=== PATIENT | female | born 1955 | race Caucasian/White ===

== ENCOUNTER 2023-05-29 05:32 | Inpatient (IN) | payer OTHER, MEDICAID ==
[~2023-05-29] VITALS: Ht 165.1 cm; Wt 51.0 kg
[2023-05-29] VITALS (9 sets, daily range): BP systolic 112; BP diastolic 57; PULSE 68–113; RESP 16–30; TEMP 99; O2SAT 89–97
[2023-05-29 07:42] LABS: Hematocrit 34.6 % (36.0-46.0); Hemoglobin 11.5 g/dL (12.2-16.2); Mean Corpuscular Hemoglobin 31.8 pg (28.0-32.0); Mean Corpuscular Hgb Conc. 33.2 g/dL (32.0-36.0); Mean Corpuscular Volume 95.9 fL (80.0-100.0); Red Blood Cells 3.61 10^6/uL (4.0-5.20); Red Cell Distribution Width 14.1 % (11.8-14.3); White Blood Cell 19.2 10^3/uL (4.4-10.8)
[2023-05-29 08:03] LABS: Alanine Aminotransferase 44 U/L (7-40); Alkaline Phosphatase 178 U/L (46-116); Anion Gap 7 (5-15); BUN/Creatinine Ratio 19.4 (10.0-20.0); Blood Urea Nitrogen 13 mg/dL (9-23); Carbon Dioxide 29 mmol/L (20-30); Chloride 102 mmol/L (98-107); Glucose 118 mg/dL (74-106); Potassium 3.3 mmol/L (3.5-5.1); Sodium 138 mmol/L (136-145)
[2023-05-29 08:04] LABS: Albumin 3.7 g/dL (3.2-4.8); Aspartate Aminotransferase 29 U/L (13-40); Bilirubin, Total 0.4 mg/dL (0.2-1.0); Total Protein 5.3 g/dL (5.7-8.2)
[2023-05-29 08:23] LABS: Basophils % (manual) 0 (0.0-2.0); Blast Cells 0; Eosinophils % (manual) 0 (0-7); Lymphocytes % (manual) 0 (10.0-50.0); Monocytes % (manual) 0 (0-12); Reactive Lymphocytes 0
[2023-05-29 09:01] LABS: Band Neutrophils % (manual) 4; Metamyelocytes % 14; Myelocytes % 1; Promyelocytes % 1
[2023-05-29 09:02] LABS: Hypersegmented Neutrophils Present; Platelet Estimate Decreased
[2023-05-29] MEDS: ENOXAPARIN SOD 60 MG/0.6 ML SYRINGE SC ONE (10:00)
[2023-05-29] MEDS: FAMOTIDINE 20 MG TAB PO ONE (10:18)
[2023-05-29] MEDS: POTASSIUM EFFERVESENT TAB 25 MEQ PO ONE (10:19)
[2023-05-29] MEDS: ONDANSETRON ODT 4 MG TAB PO ONE (10:19)
[2023-05-29] MEDS: FUROSEMIDE 20 MG/2 ML VIAL IV ONE (10:20)
[2023-05-29] MEDS: cefTRIAXone 1GM/50ML D5W 50 ML IV ONE (11:06)
[2023-05-29 11:43] LABS: Urine Bacteria NONE SEEN /hpf (None Seen); Urine Blood Negative /uL (Negative); Urine Clarity Clear (Clear); Urine Protein, UAD Negative (Negative); Urine Specific Gravity 1.009 (1.001-1.035); Urine Urobilinogen Normal (Negative); Urine WBC 4 /hpf (0 - 5); Urine pH 5.5 (5.0-8.0)
[2023-05-29 11:47] LABS: Urine Color STRAW (Yellow)
[2023-05-29] MEDS: AZITHROMYCIN 500MG/ 250ML 250 ML IV ONE (12:18)
[2023-05-29] MEDS: ONDANSETRON HCL 4 MG/2 ML VIAL IM ONE (13:18)
[2023-05-29] MEDS: MORPHINE SULFATE INJ 2 MG/ml SYRG IM ONE (13:19)
[2023-05-29 13:40] LABS: INR 1.04 (0.9-1.15); Prothrombin Time 10.9 sec (9.3-11.8)
[2023-05-29] MEDS: IPRATROPIUM BROM 0.5 MG/2.5ML INH SOL NEB SCH (14:00)
[2023-05-29] MEDS: LEVALBUTEROL HCL 1.25 MG/3 ML NEB NEB SCH (14:00)
[2023-05-29] MEDS: IPRATROPIUM BROM 0.5 MG/2.5ML INH SOL NEB ONE (14:03)
[2023-05-29 14:04] LABS: Base Excess 2.5 mmol/L (-2.0-2.0)
[2023-05-29] MEDS: LEVALBUTEROL HCL 1.25 MG/3 ML NEB NEB ONE (14:05)
[2023-05-29] MEDS: FUROSEMIDE 20 MG/2 ML VIAL IV SCH (17:54)
[2023-05-29 18:44] LABS: COVID19 ANTIGEN SOFIA FIA NEGATIVE (NEGATIVE)
[2023-05-29 18:45] LABS: Rapid Influenza B Negative (Negative)
[2023-05-29 18:57] LABS: Rapid Influenza A Positive (Negative)
[2023-05-29] MEDS: HYDROcodone-ACET 5/325MG TAB PO PRN (19:05)
[2023-05-29] MEDS ORDERED: ENOXAPARIN SOD 100 MG/1 ML SYRINGE SC SCH (22:00)
[2023-05-29] MEDS: PANTOPRAZOLE 40 MG/10 ML VIAL INJ IV SCH (22:22)
[2023-05-29] MEDS: ATORVASTATIN 20 MG TAB PO SCH (22:26)
[2023-05-30] VITALS (20 sets, daily range): BP systolic 102–124; BP diastolic 50–66; PULSE 68–117; RESP 14–23; TEMP 97.9–98.9; O2SAT 90–98
[2023-05-30] MEDS: LORazepam 2MG/ML-1ML VIAL IV PRN
[2023-05-30] MEDS ORDERED: HYDR-4902 PO (02:08)
[2023-05-30] MEDS ORDERED: ALPR0.5T7 PO (02:08)
[2023-05-30] MEDS ORDERED: BENA40TA70 PO (02:08)
[2023-05-30] MEDS ORDERED: AMLO1TAB23 PO (02:08)
[2023-05-30] MEDS ORDERED: PAR20T PO (02:08)
[2023-05-30 05:43] LABS: Alanine Aminotransferase 36 U/L (7-40); Albumin 3.8 g/dL (3.2-4.8); Alkaline Phosphatase 169 U/L (46-116); Anion Gap 4 (5-15); Aspartate Aminotransferase 25 U/L (13-40); BUN/Creatinine Ratio 15.4 (10.0-20.0); Bilirubin, Total 0.4 mg/dL (0.2-1.0); Blood Urea Nitrogen 10 mg/dL (9-23); Carbon Dioxide 36 mmol/L (20-30); Chloride 97 mmol/L (98-107); Glucose 128 mg/dL (74-106); Hematocrit 34.7 % (36.0-46.0); Hemoglobin 12.1 g/dL (12.2-16.2); Mean Corpuscular Hgb Conc. 34.9 g/dL (32.0-36.0); Mean Corpuscular Volume 97.6 fL (80.0-100.0); Potassium 3.3 mmol/L (3.5-5.1); Red Blood Cells 3.55 10^6/uL (4.0-5.20); Sodium 137 mmol/L (136-145); Total Protein 5.8 g/dL (5.7-8.2); White Blood Cell 9.2 10^3/uL (4.4-10.8)
[2023-05-30 06:00] LABS: Basophils % (manual) 0 (0.0-2.0); Blast Cells 0; Eosinophils % (manual) 0 (0-7); Promyelocytes % 0; Reactive Lymphocytes 0
[2023-05-30] MEDS: AZITHROMYCIN 500MG/ 250ML 250 ML IV SCH (08:49)
[2023-05-30] MEDS: cefTRIAXone 1GM/50ML D5W 50 ML IV SCH (08:49)
[2023-05-30] MEDS: ONDANSETRON HCL 4 MG/2 ML VIAL IV PRN (08:50)
[2023-05-30] MEDS: ENOXAPARIN SOD 40 MG/0.4 ML SYRINGE SC SCH (08:50)
[2023-05-30 12:58] LABS: Band Neutrophils % (manual) 10; Lymphocytes % (manual) 3 (10.0-50.0); Metamyelocytes % 6; Monocytes % (manual) 3 (0-12); Myelocytes % 1; Platelet Estimate Decreased
[2023-05-30] MEDS ORDERED: AZITHROMYCIN 500MG/ 250ML 250 ML IV ONE (13:30)
[2023-05-30] MEDS: MORPHINE SULFATE INJ 2 MG/ml SYRG IV PRN (13:45)
[2023-05-30] MEDS: methylPREDNISolone SOD SUCC 40 MG/ML VL IV SCH (15:28)
[2023-05-30] MEDS: DOXYCYCLINE 100MG/250ML 250 ML IV SCH (15:29)
[2023-05-30] MEDS: PARoxetine 20 MG TAB PO SCH (15:29)
[2023-05-30] MEDS: OSELTAMIVIR 75 MG CAP PO ONE (21:40)
[2023-05-31] VITALS (19 sets, daily range): BP systolic 104–118; BP diastolic 60–72; PULSE 62–111; RESP 14–20; TEMP 97.9–98.9; O2SAT 94–100
[2023-05-31] MEDS: OSELTAMIVIR 30 MG CAP PO SCH (08:09)
[2023-05-31] MEDS ORDERED: AZITHROMYCIN 500MG/ 250ML 250 ML IV SCH (10:00)
[2023-05-31] MEDS ORDERED: PARO30TA99 PO (11:41)
[2023-05-31] MEDS ORDERED: PRAV20TA3 PO (11:42)
[2023-06-01] VITALS (21 sets, daily range): BP systolic 103–122; BP diastolic 52–76; PULSE 91–120; RESP 15–20; TEMP 97.8–98.9; O2SAT 94–98
[2023-06-01] MEDS: PANTOPRAZOLE 40 MG TAB PO SCH (09:54)
[2023-06-02] VITALS (19 sets, daily range): BP systolic 103–143; BP diastolic 52–74; PULSE 86–113; RESP 16–20; TEMP 97.5–98.9; O2SAT 91–100
[2023-06-02] MEDS: IOHEXOL 350 MG/ML 100ML IJ ONE ×2 (07:39)
[2023-06-03] VITALS (18 sets, daily range): BP systolic 116–129; BP diastolic 60–69; PULSE 72–103; RESP 16–22; TEMP 97.7–98.1; O2SAT 92–100
[2023-06-04] VITALS (14 sets, daily range): BP systolic 114–141; BP diastolic 67–90; PULSE 69–118; RESP 16–18; TEMP 97.7–98.6; O2SAT 94–99
[2023-06-05] VITALS (20 sets, daily range): BP systolic 110–135; BP diastolic 53–72; PULSE 72–109; RESP 16–20; TEMP 97.5–98.4; O2SAT 92–98
[2023-06-05 05:23] LABS: Basophils # (auto) 0 10 ^3/uL (0-0.2); Basophils % (auto) 0.1 % (0.0-2.0); Eosinophils # (auto) 0 10 ^3/uL (0-0.8); Hematocrit 36.8 % (36.0-46.0); Hemoglobin 12.6 g/dL (12.2-16.2); Lymphocytes # (auto) 0.3 10 ^3/uL (0.4-5.4); Lymphocytes % (auto) 4.1 % (10.0-50.0); Mean Corpuscular Hemoglobin 32.8 pg (28.0-32.0); Mean Corpuscular Hgb Conc. 34.3 g/dL (32.0-36.0); Mean Corpuscular Volume 95.6 fL (80.0-100.0); Monocytes # (auto) 0.4 10 ^3/uL (0-1.3); Monocytes % (auto) 6.5 % (0.0-12.0); Neutrophils # (auto) 5.6 10 ^3/uL (1.6-8.6); Neutrophils % (auto) 89.3 % (37.0-80.0); Nucleated Red Blood Cells % 0.1 %; Red Blood Cells 3.85 10^6/uL (4.0-5.20); Red Cell Distribution Width 13.7 % (11.8-14.3); White Blood Cell 6.3 10^3/uL (4.4-10.8)
[2023-06-05 05:41] LABS: Alanine Aminotransferase 48 U/L (7-40); Alkaline Phosphatase 100 U/L (46-116); Anion Gap 6 (5-15); BUN/Creatinine Ratio 20.3 (10.0-20.0); Blood Urea Nitrogen 13 mg/dL (9-23); Calcium 8.9 mg/dL (8.7-10.4); Carbon Dioxide 35 mmol/L (20-30); Chloride 92 mmol/L (98-107); Glucose 179 mg/dL (74-106); Potassium 3.2 mmol/L (3.5-5.1); Sodium 133 mmol/L (136-145)
[2023-06-05 05:42] LABS: Albumin 3.6 g/dL (3.2-4.8); Aspartate Aminotransferase 28 U/L (13-40); Bilirubin, Total 0.3 mg/dL (0.2-1.0); Total Protein 5.4 g/dL (5.7-8.2)
[2023-06-06] VITALS (18 sets, daily range): BP systolic 113–129; BP diastolic 61–71; PULSE 80–100; RESP 14–21; TEMP 97.8–98.5; O2SAT 94–100
[2023-06-06] MEDS: POTASSIUM CHL 20 Meq TABLET PO ONE (09:49)
[2023-06-06 10:00] LABS: Base Excess 9.1 mmol/L (-2.0-2.0)
[2023-06-07] VITALS (10 sets, daily range): BP systolic 116–119; BP diastolic 56–61; PULSE 92–103; RESP 16–20; TEMP 98.4–98.6; O2SAT 93–100
[2023-06-07] MEDS ORDERED: ALBUAER3 IN (10:00)
[2023-06-07] MEDS ORDERED: LEVO500T91 PO (10:00)
[2023-06-07] MEDS ORDERED: PRED20TA2 PO (10:00)
== END 2023-06-07 14:00 | disposition home or self-care (01) | DRG 871 ==
LOC: ER 05:32 → EDUNIT# 05:32 → EDBD 05:32 → TELE 12:54 → TELE-CENTR 22:51
PROVIDERS: ADMIT Nurse Practitioner Family; ATTEND Family Medicine
DX: A41.9 Sepsis, unspecified organism (principal); I21.4 Non-ST elevation (NSTEMI) myocardial infarction; J10.00 Influenza due to other identified influenza virus with unspecified type of pneumonia; J96.01 Acute respiratory failure with hypoxia; J81.1 Chronic pulmonary edema; J98.11 Atelectasis; E87.6 Hypokalemia; Z20.822 Contact with and (suspected) exposure to COVID-19; I11.0 Hypertensive heart disease with heart failure; I50.9 Heart failure, unspecified; K21.9 Gastro-esophageal reflux disease without esophagitis; D69.6 Thrombocytopenia, unspecified; R74.01 Elevation of levels of liver transaminase levels; C50.919 Malignant neoplasm of unspecified site of unspecified female breast; K59.00 Constipation, unspecified; F41.9 Anxiety disorder, unspecified; I44.7 Left bundle-branch block, unspecified; Z87.891 Personal history of nicotine dependence
CPT/HCPCS: 36415; 36600; 71045; 71275; 80053; 81001; 82805; 83605; 83880; 84484; 85007; 85025; 85027; 85379; 85610; 87040; 87426; 87804; 93005; 93306; 94640; 96365; 96367; 96372; 96375; 97163; 99291; C9113; G0378; G9035; J2405; J3490; Q0162

== ENCOUNTER 2023-07-18 09:30 | Inpatient (IN) | payer OTHER, MEDICAID ==
[~2023-07-18] VITALS: Ht 167.6 cm; Wt 51.5 kg
[2023-07-18] VITALS (7 sets, daily range): BP systolic 7–144; BP diastolic 45–87; PULSE 103–156; RESP 16–22; TEMP 98.2; O2SAT 90–96
[~2023-07-18 09:30] MED LIST: ALBUAER3 IN; ALPR0.5T7 PO; AMLO1TAB23 PO; BENA40TA71 PO; HYDR-4902 PO; LEVO500T91 PO; PARO-181 PO; PRAV20TA3 PO; PRED20TA2 PO
[2023-07-18] MEDS: ONDANSETRON HCL 4 MG/2 ML VIAL IV ONE ×2 (10:15→13:42)
[2023-07-18] MEDS: MORPHINE SULFATE INJ 2 MG/ml SYRG IV ONE (10:15)
[2023-07-18] MEDS ORDERED: BUDESONIDE (INHALATION) 0.5 MG/2 ML NEB NEB ONE (10:15)
[2023-07-18] MEDS: IPRATROPIUM BROM 0.5 MG/2.5ML INH SOL NEB ONE (10:25)
[2023-07-18 10:34] LABS: Base Excess -3.5 mmol/L (-2.0-2.0)
[2023-07-18] MEDS: VANCOMYCIN 1GM/200ML 200 ML IV ONE ×2 (10:42→10:48)
[2023-07-18] MEDS: cefTRIAXone 1GM/50ML D5W 50 ML IV ONE ×3 (10:42→21:12)
[2023-07-18] MEDS: SODIUM CHLORIDE 0.9% 1,650 ML IV ONE (10:42)
[2023-07-18 10:46] LABS: Hemoglobin 9.5 g/dL (12.2-16.2); Mean Corpuscular Hemoglobin 34.9 pg (28.0-32.0); Mean Corpuscular Volume 102.7 fL (80.0-100.0); Red Blood Cells 2.73 10^6/uL (4.0-5.20); Red Cell Distribution Width 17.6 % (11.8-14.3); White Blood Cell 23.1 10^3/uL (4.4-10.8)
[2023-07-18] MEDS: cefTRIAXone 1GM/50ML D5W 0 ML IV ONE (10:48)
[2023-07-18] MEDS: ONDANSETRON HCL 4 MG/2 ML VIAL ONE ×2 (10:48→20:29)
[2023-07-18] MEDS: fentaNYL CITRATE 100 MCG/2 ML VL ONE (10:51)
[2023-07-18 10:55] LABS: Basophils % (manual) 0 (0.0-2.0); Blast Cells 0; Myelocytes % 0; Promyelocytes % 0; Reactive Lymphocytes 0
[2023-07-18 11:02] LABS: INR 1.05 (0.9-1.15); Partial Thromboplastin Time 28.5 SEC (24.5-34.5)
[2023-07-18 11:05] LABS: Alanine Aminotransferase 22 U/L (7-40); Albumin 3.4 g/dL (3.2-4.8); Alkaline Phosphatase 181 U/L (46-116); Anion Gap 8 (5-15); Aspartate Aminotransferase 26 U/L (13-40); BUN/Creatinine Ratio 13.4 (10.0-20.0); Bilirubin, Total 0.2 mg/dL (0.2-1.0); Blood Urea Nitrogen 9 mg/dL (9-23); Calcium 8.7 mg/dL (8.5-10.1); Carbon Dioxide 24 mmol/L (20-30); Chloride 110 mmol/L (98-107); Glucose 121 mg/dL (74-106); Potassium 4.2 mmol/L (3.5-5.1); Sodium 142 mmol/L (136-145); Total Protein 4.8 g/dL (5.7-8.2)
[2023-07-18 11:08] LABS: Anisocytosis Slight; Band Neutrophils % (manual) 3; Eosinophils % (manual) 1 (0-7); Lymphocytes % (manual) 4 (10.0-50.0); Macrocytosis Slight; Metamyelocytes % 1; Monocytes % (manual) 5 (0-12); Platelet Estimate Adequate
[2023-07-18] MEDS: AZITHROMYCIN 500MG/ 250ML 250 ML IV ONE ×2 (11:15→21:12)
[2023-07-18] MEDS ORDERED: MORPHINE SULFATE INJ 2 MG/ml SYRG IV PRN (11:15)
[2023-07-18] MEDS ORDERED: NITROGLYCERIN 0.4 MG SL TAB SL PRN (11:15)
[2023-07-18] MEDS: SODIUM CHLORIDE 0.9% 1,000 ML IV SCH (11:15)
[2023-07-18] MEDS: fentaNYL CITRATE 100 MCG/2 ML VL IV ONE (11:16)
[2023-07-18] MEDS: IOHEXOL 350 MG/ML 100ML IJ ONE (11:21)
[2023-07-18] MEDS: IPRATROPIUM BROM 0.5 MG/2.5ML INH SOL NEB SCH (12:00)
[2023-07-18] MEDS ORDERED: LEVALBUTEROL HCL 1.25 MG/3 ML NEB NEB SCH (12:00)
[2023-07-18] MEDS: LEVALBUTEROL HCL 1.25 MG/3 ML NEB NEB SCH (12:00)
[2023-07-18] MEDS: FUROSEMIDE 20 MG/2 ML VIAL IV ONE (13:23)
[2023-07-18] MEDS: DexAMETHasone SOD PHOS 10MG/1ML VIAL INJ IV ONE (13:27)
[2023-07-18] MEDS: LORazepam 2MG/ML-1ML VIAL IV ONE (13:42)
[2023-07-18] MEDS: methylPREDNISolone SOD SUCC 40 MG/ML VL IV SCH (14:00)
[2023-07-18] MEDS: NOREPINEPHRINE 8 MG/250ML KIT 250 ML IV SCH (15:38)
[2023-07-18] MEDS: MORPHINE SULFATE INJ 2 MG/ml SYRG IV PRN (16:56)
[2023-07-18] MEDS: ONDANSETRON HCL 4 MG/2 ML VIAL IV PRN (16:56)
[2023-07-18 17:02] LABS: Magnesium 1.4 mg/dL (1.6-2.6)
[2023-07-18 17:28] LABS: Urine Bacteria None Seen /hpf (None Seen)
[2023-07-18 18:13] LABS: Urine Blood Negative /uL (Negative); Urine Clarity Clear (Clear); Urine Color Colorless (Yellow); Urine Hyaline Cast FEW /lpf (0 - 2); Urine Protein, UAD Negative (Negative); Urine Specific Gravity 1.019 (1.001-1.035); Urine Urobilinogen Normal (Negative); Urine WBC <1 /hpf (0 - 5)
[2023-07-18 20:20] LABS: Rapid Influenza A Negative (Negative); Rapid Influenza B Negative (Negative)
[2023-07-18 20:21] LABS: COVID19 ANTIGEN SOFIA FIA NEGATIVE (NEGATIVE)
[2023-07-18] MEDS: FUROSEMIDE 20 MG/2 ML VIAL ONE (20:23)
[2023-07-18] MEDS: LORazepam 2MG/ML-1ML VIAL ONE (20:24)
[2023-07-18] MEDS: DexAMETHasone SOD PHOS 4 MG/1ML SDV INJ ONE (20:28)
[2023-07-18] MEDS: methylPREDNISolone SOD SUCC 125 MG/2 ML VL ONE (21:04)
[2023-07-18] MEDS: methylPREDNISolone SOD SUCC 40 MG/ML VL ONE (21:54)
[2023-07-19] VITALS (33 sets, daily range): BP systolic 111–140; BP diastolic 72–91; PULSE 98–135; RESP 19–36; TEMP 97.3–97.5; O2SAT 84–96
[2023-07-19] MEDS: NOREPINEPHRINE 8 MG/250ML KIT 250 ML IV ONE (00:14)
[2023-07-19] MEDS: MORPHINE SULFATE INJ 2 MG/ml SYRG ONE ×3 (01:33→13:50)
[2023-07-19] MEDS: ONDANSETRON HCL 4 MG/2 ML VIAL ONE ×2 (01:33→13:50)
[2023-07-19] MEDS: IPRATROPIUM BROM 0.5 MG/2.5ML INH SOL ONE ×3 (02:46→12:30)
[2023-07-19] MEDS: LEVALBUTEROL HCL 1.25 MG/3 ML NEB ONE ×3 (02:46→12:30)
[2023-07-19] MEDS: LORazepam 0.5 MG TAB PO ONE (05:13)
[2023-07-19 05:34] LABS: Hematocrit 30.6 % (36.0-46.0); Hemoglobin 10.6 g/dL (12.2-16.2); Mean Corpuscular Hemoglobin 35.8 pg (28.0-32.0); Mean Corpuscular Hgb Conc. 34.7 g/dL (32.0-36.0); Mean Corpuscular Volume 103.1 fL (80.0-100.0); Red Blood Cells 2.97 10^6/uL (4.0-5.20); Red Cell Distribution Width 17.6 % (11.8-14.3)
[2023-07-19 05:45] LABS: Alanine Aminotransferase 65 U/L (7-40); Albumin 3.7 g/dL (3.2-4.8); Alkaline Phosphatase 220 U/L (46-116); Anion Gap 8 (5-15); Aspartate Aminotransferase 60 U/L (13-40); BUN/Creatinine Ratio 10.8 (10.0-20.0); Bilirubin, Total 0.3 mg/dL (0.2-1.0); Blood Urea Nitrogen 7 mg/dL (9-23); Calcium 9.7 mg/dL (8.7-10.4); Carbon Dioxide 25 mmol/L (20-30); Chloride 105 mmol/L (98-107); Glucose 183 mg/dL (74-106); Sodium 138 mmol/L (136-145); Total Protein 5.8 g/dL (5.7-8.2)
[2023-07-19 05:53] LABS: Band Neutrophils % (manual) 0; Basophils % (manual) 0 (0.0-2.0); Blast Cells 0; Eosinophils % (manual) 0 (0-7); Metamyelocytes % 0; Myelocytes % 0; Promyelocytes % 0; Reactive Lymphocytes 0
[2023-07-19 07:28] LABS: Lymphocytes % (manual) 1 (10.0-50.0); Monocytes % (manual) 1 (0-12); Platelet Estimate Adequate
[2023-07-19] MEDS: cefTRIAXone 1GM/50ML D5W 50 ML IV SCH (09:01)
[2023-07-19] MEDS ORDERED: ALBU108A5 INH (09:01)
[2023-07-19] MEDS ORDERED: PARO-135 PO ×2 (09:07)
[2023-07-19] MEDS ORDERED: OMEP20TA PO ×2 (09:14)
[2023-07-19] MEDS ORDERED: POTA-220 PO ×2 (09:14)
[2023-07-19] MEDS ORDERED: MORP1TAB12 PO ×2 (09:14)
[2023-07-19] MEDS ORDERED: BUDE1AER6 INH ×2 (09:14)
[2023-07-19] MEDS: FUROSEMIDE 20 MG/2 ML VIAL IV SCH (10:26)
[2023-07-19] MEDS: LORazepam 2MG/ML-1ML VIAL IV ONE (10:34)
[2023-07-19 10:53] LABS: Base Excess -4.6 mmol/L (-2.0-2.0)
[2023-07-19] MEDS: AZITHROMYCIN 500MG/ 250ML 250 ML IV SCH (11:14)
[2023-07-19] MEDS: ENOXAPARIN SOD 40 MG/0.4 ML SYRINGE SC SCH (11:14)
[2023-07-19] MEDS ORDERED: VANCOMYCIN PER PHARMACY 0 MG IV SCH (11:15)
[2023-07-19] MEDS: LORazepam 0.5 MG TAB ONE (11:36)
[2023-07-19] MEDS: methylPREDNISolone SOD SUCC 40 MG/ML VL ONE (13:50)
[2023-07-19] MEDS: LORazepam 2MG/ML-1ML VIAL ONE (13:51)
[2023-07-19] MEDS: methylPREDNISolone SOD SUCC 125 MG/2 ML VL ONE (13:51)
[2023-07-19] MEDS: FUROSEMIDE 20 MG/2 ML VIAL ONE (13:51)
[2023-07-19] MEDS: cefTRIAXone 1GM/50ML D5W 50 ML IV ONE (13:52)
[2023-07-19] MEDS: VANCOMYCIN 1GM/200ML 200 ML IV ONE ×2 (14:19→15:05)
[2023-07-19] MEDS: MEROPENEM 1GM IVPB 50 ML IV SCH (14:32)
[2023-07-19] MEDS: MEROPENEM 1GM IVPB 50 ML IV ONE (15:05)
[2023-07-19] MEDS: HYDROcodone-ACET 5/325MG TAB PO PRN (16:19)
[2023-07-20] VITALS (108 sets, daily range): BP systolic 53–146; BP diastolic 31–96; PULSE 79–144; RESP 9–35; TEMP 97–99; O2SAT 82–99
[2023-07-20] MEDS: ALPRAZolam 0.25 MG TAB PO ONE (01:00)
[2023-07-20] MEDS: ALPRAZolam 0.25 MG TAB ONE (01:08)
[2023-07-20] MEDS: ALBUTEROL SULF 2.5 MG/0.5ML(0.5%) NEB SOLN NEB PRN (02:58)
[2023-07-20 04:35] LABS: Hemoglobin 10.8 g/dL (12.2-16.2); Mean Corpuscular Hemoglobin 33.4 pg (28.0-32.0); Mean Corpuscular Hgb Conc. 33.6 g/dL (32.0-36.0); Mean Corpuscular Volume 99.4 fL (80.0-100.0); Red Blood Cells 3.22 10^6/uL (4.0-5.20); Red Cell Distribution Width 18.2 % (11.8-14.3); White Blood Cell 26.3 10^3/uL (4.4-10.8)
[2023-07-20 04:37] LABS: Band Neutrophils % (manual) 0; Basophils % (manual) 0 (0.0-2.0); Blast Cells 0; Eosinophils % (manual) 0 (0-7); Metamyelocytes % 0; Myelocytes % 0; Promyelocytes % 0; Reactive Lymphocytes 0
[2023-07-20 04:38] LABS: Calcium 9.4 mg/dL (8.5-10.1); Chloride 104 mmol/L (98-107); Potassium 3.7 mmol/L (3.5-5.1); Sodium 140 mmol/L (136-145)
[2023-07-20 04:39] LABS: Anion Gap 9 (5-15); Carbon Dioxide 27 mmol/L (20-30)
[2023-07-20 04:44] LABS: BUN/Creatinine Ratio 27.8 (10.0-20.0); Blood Urea Nitrogen 15 mg/dL (9-23); Glucose 166 mg/dL (74-106)
[2023-07-20] MEDS: NOREPINEPHRINE 8 MG/250ML KIT 250 ML IV SCH (05:30)
[2023-07-20 05:34] LABS: Erythrocyte Sedimentation Rate 48 mm/hr (0-20)
[2023-07-20] MEDS: fentaNYL Drip 2500mCg/250mlNS 250 ML IV SCH (05:43)
[2023-07-20] MEDS: PROPOFOL 100 ML IV SCH (05:48)
[2023-07-20 07:36] LABS: Base Excess -2.2 mmol/L (-2.0-2.0)
[2023-07-20] MEDS: PROPOFOL 100 ML IV ONE (07:38)
[2023-07-20] MEDS: MIDAZOLAM DRIP 50 mg/50mL 50 ML IV ONE (07:48)
[2023-07-20] MEDS: MIDAZOLAM DRIP 50 mg/50mL 50 ML IV SCH (07:50)
[2023-07-20 07:55] LABS: Lymphocytes % (manual) 2 (10.0-50.0); Monocytes % (manual) 3 (0-12); Platelet Estimate Adequate; RBC Morphology Normal
[2023-07-20] MEDS ORDERED: AZITHROMYCIN 500MG/ 250ML 250 ML IV SCH (08:00)
[2023-07-20] MEDS: VANCOMYCIN 1GM/200ML 200 ML IV SCH (08:01)
[2023-07-20] MEDS ORDERED: ROCURONIUM 10MG/ML 10ML VIAL IV PRN (08:45)
[2023-07-20] MEDS: ROCURONIUM 10MG/ML 10ML VIAL IV ONE (09:06)
[2023-07-20] MEDS ORDERED: DOXYCYCLINE 100MG/250ML 250 ML IV SCH (09:15)
[2023-07-20 10:43] LABS: Base Excess 0.7 mmol/L (-2.0-2.0)
[2023-07-20] MEDS: PANTOPRAZOLE 40 MG/10 ML VIAL INJ IV SCH (11:37)
[2023-07-20] MEDS: DOXYCYCLINE 100MG/250ML 250 ML IV SCH (11:40)
[2023-07-20] MEDS: MICAFUNGIN SODIUM 100 MG in SODIUM CHL 0.9% 100 ML IV SCH (13:23)
[2023-07-20] MEDS: methylPREDNISolone SOD SUCC 40 MG/ML VL IV SCH (21:37)
[2023-07-21] VITALS (105 sets, daily range): BP systolic 97–137; BP diastolic 42–63; PULSE 82–103; RESP 13–19; TEMP 96.6–99; O2SAT 94–99
[2023-07-21 03:46] LABS: Basophils # (auto) 0 10 ^3/uL (0-0.2); Basophils % (auto) 0.2 % (0.0-2.0); Eosinophils # (auto) 0 10 ^3/uL (0-0.8); Hematocrit 27.3 % (36.0-46.0); Hemoglobin 9.4 g/dL (12.2-16.2); Lymphocytes # (auto) 0.1 10 ^3/uL (0.4-5.4); Lymphocytes % (auto) 1.1 % (10.0-50.0); Mean Corpuscular Hemoglobin 35.1 pg (28.0-32.0); Mean Corpuscular Hgb Conc. 34.3 g/dL (32.0-36.0); Mean Corpuscular Volume 102.4 fL (80.0-100.0); Monocytes # (auto) 0.7 10 ^3/uL (0-1.3); Monocytes % (auto) 5.6 % (0.0-12.0); Neutrophils # (auto) 11.8 10 ^3/uL (1.6-8.6); Neutrophils % (auto) 93.1 % (37.0-80.0); Nucleated Red Blood Cells % 0.7 %; Red Blood Cells 2.67 10^6/uL (4.0-5.20); White Blood Cell 12.7 10^3/uL (4.4-10.8)
[2023-07-21 04:12] LABS: Alanine Aminotransferase 34 U/L (7-40); Albumin 3.5 g/dL (3.2-4.8); Alkaline Phosphatase 134 U/L (46-116); Anion Gap 9 (5-15); Aspartate Aminotransferase 9 U/L (13-40); BUN/Creatinine Ratio 28.1 (10.0-20.0); Calcium 9.1 mg/dL (8.7-10.4); Carbon Dioxide 26 mmol/L (20-30); Chloride 105 mmol/L (98-107); Glucose 218 mg/dL (74-106); Potassium 4.3 mmol/L (3.5-5.1); Sodium 140 mmol/L (136-145)
[2023-07-21 04:13] LABS: Bilirubin, Total 0.2 mg/dL (0.2-1.0); Total Protein 5.3 g/dL (5.7-8.2)
[2023-07-21 04:18] LABS: Blood Urea Nitrogen 27 mg/dL (9-23)
[2023-07-21 07:24] LABS: Base Excess 0.2 mmol/L (-2.0-2.0)
[2023-07-21 08:40] LABS: INR 1.02 (0.9-1.15); Partial Thromboplastin Time 22.8 SEC (24.5-34.5); Prothrombin Time 10.7 sec (9.3-11.8)
[2023-07-21] MEDS ORDERED: LIDOCAINE 2% JELLY 11ml (GLYDO) ONE (08:42)
[2023-07-21] MEDS ORDERED: LIDOCAINE 2%HCL (LOCAL ANESTH.) INJ 20ML MDV ONE (08:43)
[2023-07-21] MEDS ORDERED: GLYCOPYRROLATE 0.2 MG/ML 1ML VIAL ONE (08:44)
[2023-07-21] MEDS ORDERED: EPINEPHrine HCL 1 MG/1 ML AMP ONE (08:44)
[2023-07-21] MEDS ORDERED: NALOXONE HCL 0.4 MG/ML VIAL ONE (08:45)
[2023-07-21] MEDS ORDERED: fentaNYL CITRATE 100 MCG/2 ML VL ONE (08:45)
[2023-07-21] MEDS ORDERED: FLUMAZENIL 0.1 MG/ML INJ 10ML MDV IV ONE (08:45)
[2023-07-21] MEDS ORDERED: MIDAZOLAM HCL 5 MG/ML-1ML VIAL ONE (08:45)
[2023-07-21 11:06] LABS: Base Excess -2.1 mmol/L (-2.0-2.0)
[2023-07-22] VITALS (105 sets, daily range): BP systolic 100–140; BP diastolic 37–66; PULSE 76–95; RESP 11–33; TEMP 96.1–98.8; O2SAT 91–98
[2023-07-22 03:58] LABS: Basophils # (auto) 0 10 ^3/uL (0-0.2); Eosinophils # (auto) 0 10 ^3/uL (0-0.8); Hemoglobin 9.2 g/dL (12.2-16.2); Lymphocytes # (auto) 0.1 10 ^3/uL (0.4-5.4); Monocytes # (auto) 0.4 10 ^3/uL (0-1.3)
[2023-07-22 04:01] LABS: Hematocrit 26.6 % (36.0-46.0); Lymphocytes % (auto) 1.5 % (10.0-50.0); Mean Corpuscular Hgb Conc. 34.6 g/dL (32.0-36.0); Mean Corpuscular Volume 103.9 fL (80.0-100.0); Monocytes % (auto) 5.4 % (0.0-12.0); Neutrophils # (auto) 6.6 10 ^3/uL (1.6-8.6); Neutrophils % (auto) 93.1 % (37.0-80.0); Nucleated Red Blood Cells % 0.4 %; Red Blood Cells 2.56 10^6/uL (4.0-5.20); Red Cell Distribution Width 17.9 % (11.8-14.3); White Blood Cell 7.1 10^3/uL (4.4-10.8)
[2023-07-22 04:09] LABS: Calcium 9.2 mg/dL (8.7-10.4); Chloride 110 mmol/L (98-107); Potassium 3.8 mmol/L (3.5-5.1); Sodium 144 mmol/L (136-145)
[2023-07-22 04:10] LABS: Anion Gap 5 (5-15); Carbon Dioxide 29 mmol/L (20-30)
[2023-07-22 04:15] LABS: BUN/Creatinine Ratio 44.8 (10.0-20.0); Blood Urea Nitrogen 30 mg/dL (9-23); Glucose 244 mg/dL (74-106)
[2023-07-22 07:38] LABS: Base Excess 1.1 mmol/L (-2.0-2.0)
[2023-07-22] MEDS ORDERED: DEXTROSE (50%) 50ML SYRG IV PRN (10:45)
[2023-07-22] MEDS: InsuLIN REG 1unit/0.01ml Soln (100units/ml) SC SCH (11:53)
[2023-07-22] MEDS: ACCU-CHEK COMFORT CURVE STRIP VI SCH (11:56)
[2023-07-23] VITALS (101 sets, daily range): BP systolic 100–150; BP diastolic 33–89; PULSE 79–147; RESP 11–43; TEMP 98.1–99.9; O2SAT 82–99
[2023-07-23 03:33] LABS: Basophils # (auto) 0 10 ^3/uL (0-0.2); Basophils % (auto) 0.1 % (0.0-2.0); Eosinophils # (auto) 0 10 ^3/uL (0-0.8); Lymphocytes # (auto) 0.1 10 ^3/uL (0.4-5.4); Monocytes # (auto) 0.4 10 ^3/uL (0-1.3)
[2023-07-23 03:35] LABS: Hematocrit 27.1 % (36.0-46.0); Hemoglobin 9.4 g/dL (12.2-16.2); Lymphocytes % (auto) 1.4 % (10.0-50.0); Mean Corpuscular Hemoglobin 36.4 pg (28.0-32.0); Mean Corpuscular Hgb Conc. 34.6 g/dL (32.0-36.0); Monocytes % (auto) 4.8 % (0.0-12.0); Neutrophils # (auto) 7.9 10 ^3/uL (1.6-8.6); Neutrophils % (auto) 93.7 % (37.0-80.0); Nucleated Red Blood Cells % 0.5 %; Red Blood Cells 2.58 10^6/uL (4.0-5.20); Red Cell Distribution Width 18.4 % (11.8-14.3); White Blood Cell 8.4 10^3/uL (4.4-10.8)
[2023-07-23 03:40] LABS: Chloride 114 mmol/L (98-107); Potassium 4.8 mmol/L (3.5-5.1); Sodium 148 mmol/L (136-145)
[2023-07-23 03:41] LABS: Anion Gap 4 (5-15); Carbon Dioxide 30 mmol/L (20-30)
[2023-07-23 03:42] LABS: Calcium 9.4 mg/dL (8.7-10.4)
[2023-07-23 03:47] LABS: BUN/Creatinine Ratio 64.7 (10.0-20.0); Blood Urea Nitrogen 33 mg/dL (9-23); Glucose 227 mg/dL (74-106)
[2023-07-23] MEDS: D5W 5% IV SCH (05:30)
[2023-07-23] MEDS: DEXMEDETOMIDINE IV SCH (05:30)
[2023-07-23 07:44] LABS: Base Excess 0.9 mmol/L (-2.0-2.0)
[2023-07-23] MEDS: Jevity 1.2 Cal/Fiber 1 Liter GT SCH (16:03)
[2023-07-23] MEDS: SODIUM CHLORIDE 0.9% 1,000 ML IV ONE (16:19)
[2023-07-23] MEDS: fentaNYL 50MCG/HR 50 MCG/HR PAT TD SCH (18:12)
[2023-07-24] VITALS (109 sets, daily range): BP systolic 113–175; BP diastolic 41–164; PULSE 61–142; RESP 9–31; TEMP 96.3–100.6; O2SAT 9–100
[2023-07-24 04:08] LABS: Basophils # (auto) 0 10 ^3/uL (0-0.2); Eosinophils # (auto) 0 10 ^3/uL (0-0.8); Hematocrit 25.6 % (36.0-46.0); Hemoglobin 8.8 g/dL (12.2-16.2); Lymphocytes # (auto) 0.2 10 ^3/uL (0.4-5.4); Lymphocytes % (auto) 2.1 % (10.0-50.0); Mean Corpuscular Hemoglobin 35.7 pg (28.0-32.0); Mean Corpuscular Hgb Conc. 34.2 g/dL (32.0-36.0); Mean Corpuscular Volume 104.3 fL (80.0-100.0); Monocytes # (auto) 0.3 10 ^3/uL (0-1.3); Monocytes % (auto) 3.1 % (0.0-12.0); Neutrophils # (auto) 8.9 10 ^3/uL (1.6-8.6); Neutrophils % (auto) 94.8 % (37.0-80.0); Nucleated Red Blood Cells % 0.2 %; Red Blood Cells 2.46 10^6/uL (4.0-5.20); White Blood Cell 9.4 10^3/uL (4.4-10.8)
[2023-07-24 04:19] LABS: Calcium 8.9 mg/dL (8.7-10.4); Chloride 112 mmol/L (98-107); Potassium 4.2 mmol/L (3.5-5.1); Sodium 149 mmol/L (136-145)
[2023-07-24 04:20] LABS: Anion Gap 6 (5-15); Carbon Dioxide 31 mmol/L (20-30)
[2023-07-24 04:25] LABS: Blood Urea Nitrogen 33 mg/dL (9-23); Glucose 203 mg/dL (74-106)
[2023-07-24 08:30] LABS: Base Excess 5.1 mmol/L (-2.0-2.0)
[2023-07-24] MEDS: chlordiazePOXIDE HCL 25 MG CAP ONE ×2 (10:32→14:15)
[2023-07-24] MEDS: chlordiazePOXIDE HCL 25 MG CAP PO SCH (10:33)
[2023-07-24] MEDS: fentaNYL 100MCG/HR 100 MCG/HR PAT TD SCH (10:40)
[2023-07-24] MEDS: METOCLOPRAMIDE 10 mg/10ml ORAL soln GT SCH (18:21)
[2023-07-25] VITALS (107 sets, daily range): BP systolic 80–180; BP diastolic 41–114; PULSE 66–147; RESP 12–37; TEMP 96.4–99.7; O2SAT 86–99
[2023-07-25 03:48] LABS: Anion Gap 9 (5-15); Carbon Dioxide 32 mmol/L (20-30); Chloride 101 mmol/L (98-107); Potassium 3.4 mmol/L (3.5-5.1); Sodium 142 mmol/L (136-145)
[2023-07-25 03:49] LABS: Calcium 9.1 mg/dL (8.7-10.4)
[2023-07-25 03:53] LABS: Basophils # (auto) 0 10 ^3/uL (0-0.2); Eosinophils # (auto) 0 10 ^3/uL (0-0.8); Lymphocytes # (auto) 0.1 10 ^3/uL (0.4-5.4); Mean Corpuscular Hemoglobin 35.6 pg (28.0-32.0); Monocytes # (auto) 0.4 10 ^3/uL (0-1.3); Neutrophils # (auto) 7.1 10 ^3/uL (1.6-8.6); White Blood Cell 7.6 10^3/uL (4.4-10.8)
[2023-07-25 03:54] LABS: BUN/Creatinine Ratio 48.9 (10.0-20.0); Blood Urea Nitrogen 22 mg/dL (9-23); Glucose 232 mg/dL (74-106)
[2023-07-25 03:55] LABS: Basophils % (auto) 0.1 % (0.0-2.0); Hematocrit 28.6 % (36.0-46.0); Mean Corpuscular Hgb Conc. 34.9 g/dL (32.0-36.0); Mean Corpuscular Volume 102.1 fL (80.0-100.0); Monocytes % (auto) 4.9 % (0.0-12.0); Nucleated Red Blood Cells % 0.1 %; Red Cell Distribution Width 17.5 % (11.8-14.3)
[2023-07-25 07:44] LABS: Base Excess 9.2 mmol/L (-2.0-2.0)
[2023-07-25] MEDS: chlordiazePOXIDE HCL 25 MG CAP PO SCH ×2 (09:13→11:56)
[2023-07-25] MEDS ORDERED: chlordiazePOXIDE HCL 25 MG CAP PO ONE (10:45)
[2023-07-25] MEDS: POTASSIUM CHL 20MEQ/100ML 100 ML IV SCH (11:18)
[2023-07-25] MEDS: QUEtiapine FUMARATE 25 MG TAB PO ONE (11:57)
[2023-07-25] MEDS: MAGNESIUM SULFATE 1GM/100ML 100 ML IV SCH (14:17)
[2023-07-25] MEDS: MAGNESIUM OXIDE 400 MG TAB PO SCH (22:00)
[2023-07-25] MEDS: QUEtiapine FUMARATE 25 MG TAB PO SCH (22:00)
[2023-07-25] MEDS ORDERED: chlordiazePOXIDE HCL 25 MG CAP PO SCH (22:00)
[2023-07-26] VITALS (109 sets, daily range): BP systolic 111–148; BP diastolic 61–96; PULSE 78–146; RESP 9–40; TEMP 98.4–100.4; O2SAT 9–100
[2023-07-26] MEDS: VANCOMYCIN 1GM/200ML 200 ML IV SCH (04:05)
[2023-07-26 04:07] LABS: Basophils # (auto) 0 10 ^3/uL (0-0.2); Basophils % (auto) 0.1 % (0.0-2.0); Eosinophils # (auto) 0 10 ^3/uL (0-0.8); Hemoglobin 9.4 g/dL (12.2-16.2); Lymphocytes # (auto) 0.1 10 ^3/uL (0.4-5.4); Monocytes # (auto) 0.4 10 ^3/uL (0-1.3); Nucleated Red Blood Cells % 0.1 %; White Blood Cell 6.8 10^3/uL (4.4-10.8)
[2023-07-26 04:12] LABS: Lymphocytes % (auto) 1.5 % (10.0-50.0); Mean Corpuscular Hemoglobin 35.5 pg (28.0-32.0); Mean Corpuscular Hgb Conc. 34.8 g/dL (32.0-36.0); Neutrophils # (auto) 6.3 10 ^3/uL (1.6-8.6); Neutrophils % (auto) 92.4 % (37.0-80.0); Red Blood Cells 2.65 10^6/uL (4.0-5.20); Red Cell Distribution Width 17.4 % (11.8-14.3)
[2023-07-26 04:17] LABS: Anion Gap 5 (5-15); Carbon Dioxide 30 mmol/L (20-30); Chloride 106 mmol/L (98-107); Potassium 3.8 mmol/L (3.5-5.1); Sodium 141 mmol/L (136-145)
[2023-07-26 04:18] LABS: Calcium 8.1 mg/dL (8.7-10.4)
[2023-07-26 04:23] LABS: BUN/Creatinine Ratio 37.1 (10.0-20.0); Blood Urea Nitrogen 13 mg/dL (9-23); Glucose 178 mg/dL (74-106)
[2023-07-26 04:24] LABS: Magnesium 2.1 mg/dL (1.6-2.6)
[2023-07-26] MEDS: IPRATROPIUM BROM 0.5 MG/2.5ML INH SOL ONE (06:11)
[2023-07-26 07:03] LABS: Anisocytosis Slight; Ovalocytes FEW; Platelet Estimate Decreased
[2023-07-26 07:04] LABS: Large Platelets FEW
[2023-07-26 07:27] LABS: Base Excess 6.3 mmol/L (-2.0-2.0)
[2023-07-26] MEDS: MAGNESIUM OXIDE 400 MG TAB PO SCH (11:46)
[2023-07-26] MEDS: DOXYCYCLINE 100MG/250ML 250 ML IV SCH (11:46)
[2023-07-26] MEDS: METOPROLOL TARTRATE 25 MG TAB GT SCH (11:47)
[2023-07-26 13:22] LABS: Base Excess 6.3 mmol/L (-2.0-2.0)
[2023-07-26] MEDS: ACETAMINOPHEN 325 MG TAB PO PRN (16:25)
[2023-07-27] VITALS (90 sets, daily range): BP systolic 111–147; BP diastolic 59–95; PULSE 97–123; RESP 8–36; TEMP 96.6–99.7; O2SAT 77–100
[2023-07-27 04:01] LABS: Basophils # (auto) 0 10 ^3/uL (0-0.2); Basophils % (auto) 0.1 % (0.0-2.0); Eosinophils # (auto) 0 10 ^3/uL (0-0.8); Hematocrit 34.7 % (36.0-46.0); Hemoglobin 11.4 g/dL (12.2-16.2); Lymphocytes # (auto) 0.2 10 ^3/uL (0.4-5.4); Lymphocytes % (auto) 1.4 % (10.0-50.0); Mean Corpuscular Hemoglobin 32.4 pg (28.0-32.0); Mean Corpuscular Hgb Conc. 32.7 g/dL (32.0-36.0); Monocytes # (auto) 0.7 10 ^3/uL (0-1.3); Monocytes % (auto) 5.3 % (0.0-12.0); Neutrophils # (auto) 11.6 10 ^3/uL (1.6-8.6); Neutrophils % (auto) 93.2 % (37.0-80.0); Red Blood Cells 3.51 10^6/uL (4.0-5.20); Red Cell Distribution Width 17.8 % (11.8-14.3); White Blood Cell 12.4 10^3/uL (4.4-10.8)
[2023-07-27 04:07] LABS: Anion Gap 5 (5-15); Carbon Dioxide 33 mmol/L (20-30); Chloride 101 mmol/L (98-107); Potassium 3.7 mmol/L (3.5-5.1); Sodium 139 mmol/L (136-145)
[2023-07-27 04:13] LABS: BUN/Creatinine Ratio 32.6 (10.0-20.0); Blood Urea Nitrogen 14 mg/dL (9-23); Glucose 200 mg/dL (74-106)
[2023-07-27 09:26] LABS: Base Excess 4.9 mmol/L (-2.0-2.0)
[2023-07-27] MEDS: FUROSEMIDE 40 MG/4 ML VIAL IV ONE (09:57)
[2023-07-27] MEDS: methylPREDNISolone SOD SUCC 40 MG/ML VL IV SCH (11:40)
[2023-07-27] MEDS: POTASSIUM CHL 20MEQ/100ML 100 ML IV SCH (11:41)
[2023-07-27] MEDS: COLCHICINE 0.6 MG CAP PO ONE (16:00)
[2023-07-27] MEDS: FUROSEMIDE 40 MG/4 ML VIAL IV SCH (18:22)
[2023-07-27] MEDS: SACUBITRIL-VALSARTAN 24mg/26mg TAB PO SCH (22:00)
[2023-07-28] VITALS (34 sets, daily range): BP systolic 114–131; BP diastolic 60–77; PULSE 98–116; RESP 8–22; TEMP 97.8–99.8; O2SAT 2–100
[2023-07-28] MEDS: LORazepam 2MG/ML-1ML VIAL IV ONE (01:59)
[2023-07-28 05:58] LABS: Basophils # (auto) 0 10 ^3/uL (0-0.2); Eosinophils # (auto) 0.1 10 ^3/uL (0-0.8); Hemoglobin 11.8 g/dL (12.2-16.2); Lymphocytes # (auto) 0.7 10 ^3/uL (0.4-5.4); Mean Corpuscular Hgb Conc. 34.2 g/dL (32.0-36.0); Monocytes # (auto) 2.3 10 ^3/uL (0-1.3)
[2023-07-28 06:01] LABS: Basophils % (auto) 0.2 % (0.0-2.0); Hematocrit 34.4 % (36.0-46.0); Lymphocytes % (auto) 5.2 % (10.0-50.0); Mean Corpuscular Volume 102.4 fL (80.0-100.0); Monocytes % (auto) 17.3 % (0.0-12.0); Neutrophils # (auto) 9.9 10 ^3/uL (1.6-8.6); Neutrophils % (auto) 76.3 % (37.0-80.0); Nucleated Red Blood Cells % 0.2 %; Red Blood Cells 3.36 10^6/uL (4.0-5.20); Red Cell Distribution Width 17.4 % (11.8-14.3)
[2023-07-28 06:02] LABS: Calcium 9.6 mg/dL (8.7-10.4); Chloride 100 mmol/L (98-107); Potassium 2.8 mmol/L (3.5-5.1); Sodium 141 mmol/L (136-145)
[2023-07-28 06:03] LABS: Anion Gap 9 (5-15); Carbon Dioxide 32 mmol/L (20-30)
[2023-07-28 06:04] LABS: INR 1.19 (0.9-1.15); Partial Thromboplastin Time 24.7 SEC (24.5-34.5); Prothrombin Time 12.4 sec (9.3-11.8)
[2023-07-28 06:08] LABS: Glucose 108 mg/dL (74-106)
[2023-07-28 06:09] LABS: Blood Urea Nitrogen 14 mg/dL (9-23)
[2023-07-28] MEDS: POTASSIUM CHL 20MEQ/100ML 100 ML IV SCH (06:42)
[2023-07-28] MEDS: METOPROLOL SUCCINATE XL 50 MG TAB PO SCH (10:00)
[2023-07-28] MEDS: COLCHICINE 0.6 MG CAP PO SCH (10:00)
[2023-07-28] MEDS ORDERED: EMPAGLIFLOZIN 10 MG TAB PO SCH (10:00)
[2023-07-28] MEDS: ASPirin 81 mg TAB PO SCH (10:00)
[2023-07-28] MEDS: FUROSEMIDE 40 MG/4 ML VIAL IV SCH (10:57)
[2023-07-28 14:42] LABS: Potassium 3.4 mmol/L (3.5-5.1)
[2023-07-28 14:49] LABS: Magnesium 1.9 mg/dL (1.6-2.6)
[2023-07-28] MEDS: MAGNESIUM SULFATE 1GM/100ML 100 ML IV ONE (15:24)
[2023-07-28] MEDS: POTASSIUM CHL 20MEQ/100ML 100 ML IV ONE (16:24)
[2023-07-28] MEDS: METOPROLOL TARTRATE 25 MG TAB PO SCH (21:36)
[2023-07-29] VITALS (33 sets, daily range): BP systolic 104–137; BP diastolic 58–70; PULSE 78–111; RESP 12–26; TEMP 97.1–98.2; O2SAT 94–100
[2023-07-29 06:17] LABS: Basophils # (auto) 0 10 ^3/uL (0-0.2); Eosinophils # (auto) 0.1 10 ^3/uL (0-0.8); Eosinophils % (auto) 1.2 % (0.0-7.0); Monocytes # (auto) 1.6 10 ^3/uL (0-1.3); Nucleated Red Blood Cells % 0.1 %; Red Cell Distribution Width 18.3 % (11.8-14.3)
[2023-07-29 06:19] LABS: Basophils % (auto) 0.1 % (0.0-2.0); Hematocrit 35.2 % (36.0-46.0); Hemoglobin 12.2 g/dL (12.2-16.2); Lymphocytes # (auto) 0.7 10 ^3/uL (0.4-5.4); Lymphocytes % (auto) 7.1 % (10.0-50.0); Mean Corpuscular Hemoglobin 35.2 pg (28.0-32.0); Mean Corpuscular Hgb Conc. 34.6 g/dL (32.0-36.0); Mean Corpuscular Volume 101.9 fL (80.0-100.0); Monocytes % (auto) 17.4 % (0.0-12.0); Neutrophils % (auto) 74.2 % (37.0-80.0); Red Blood Cells 3.46 10^6/uL (4.0-5.20); White Blood Cell 9.4 10^3/uL (4.4-10.8)
[2023-07-29 06:24] LABS: Chloride 100 mmol/L (98-107); Potassium 3.4 mmol/L (3.5-5.1); Sodium 140 mmol/L (136-145)
[2023-07-29 06:25] LABS: Anion Gap 8 (5-15); Calcium 9.8 mg/dL (8.7-10.4); Carbon Dioxide 32 mmol/L (20-30)
[2023-07-29 06:30] LABS: BUN/Creatinine Ratio 31.5 (10.0-20.0); Blood Urea Nitrogen 17 mg/dL (9-23); Glucose 123 mg/dL (74-106)
[2023-07-29 06:31] LABS: Magnesium 2.3 mg/dL (1.6-2.6)
[2023-07-29] MEDS: POTASSIUM CHLORIDE 40 MEQ, LIDOCAINE 1% (LOCAL ANESTH.) 4 ML in SODIUM CHL 0.9% 250 ML IV ONE (11:11)
[2023-07-30] VITALS (23 sets, daily range): BP systolic 109–127; BP diastolic 54–71; PULSE 72–101; RESP 12–20; TEMP 97.2–98; O2SAT 93–100
[2023-07-30 06:18] LABS: Basophils # (auto) 0 10 ^3/uL (0-0.2); Basophils % (auto) 0.2 % (0.0-2.0); Eosinophils # (auto) 0.1 10 ^3/uL (0-0.8); Lymphocytes # (auto) 0.5 10 ^3/uL (0.4-5.4); Monocytes # (auto) 1.2 10 ^3/uL (0-1.3); Neutrophils # (auto) 5.5 10 ^3/uL (1.6-8.6); Red Cell Distribution Width 18.2 % (11.8-14.3); White Blood Cell 7.3 10^3/uL (4.4-10.8)
[2023-07-30 06:21] LABS: Eosinophils % (auto) 1.4 % (0.0-7.0); Hemoglobin 11.5 g/dL (12.2-16.2); Lymphocytes % (auto) 6.6 % (10.0-50.0); Mean Corpuscular Hemoglobin 34.4 pg (28.0-32.0); Mean Corpuscular Hgb Conc. 33.9 g/dL (32.0-36.0); Mean Corpuscular Volume 101.6 fL (80.0-100.0); Monocytes % (auto) 16.2 % (0.0-12.0); Neutrophils % (auto) 75.6 % (37.0-80.0); Red Blood Cells 3.34 10^6/uL (4.0-5.20)
[2023-07-30 06:25] LABS: Anion Gap 10 (5-15); Carbon Dioxide 31 mmol/L (20-30); Chloride 103 mmol/L (98-107); Potassium 3.3 mmol/L (3.5-5.1); Sodium 144 mmol/L (136-145)
[2023-07-30 06:27] LABS: Calcium 9.6 mg/dL (8.5-10.1)
[2023-07-30 06:31] LABS: BUN/Creatinine Ratio 40.6 (10.0-20.0); Glucose 117 mg/dL (74-106)
[2023-07-30 06:32] LABS: Blood Urea Nitrogen 28 mg/dL (9-23)
[2023-07-30] MEDS: SPIRONOLACTONE 25 MG TAB PO SCH (10:00)
[2023-07-30] MEDS: EMPAGLIFLOZIN 10 MG TAB PO SCH (10:00)
[2023-07-30] MEDS: IODIXANOL 320MG/ML 100ML BTL IV ONE ×2 (15:18→15:56)
[2023-07-30] MEDS: LIDOCAINE 2%HCL (LOCAL ANESTH.) INJ 10ml MDV ONE (15:18)
[2023-07-30] MEDS: HEPARIN SODIUM (PORCINE) 5000 UNITS/ML 1ML VIAL ONE (15:23)
[2023-07-30] MEDS: VERAPAMIL 2.5MG/ML INJ 2ML VIAL IV ONE (15:23)
[2023-07-30] MEDS: ANGIOMAX 250 MG VIAL IV ONE (15:23)
[2023-07-30] MEDS: SODIUM CHL 0.9% 50 ML ONE (15:24)
[2023-07-30] MEDS: MIDAZOLAM HCL 2MG/2ML 2ml VIAL (1mg/ml) ONE (15:24)
[2023-07-30] MEDS: fentaNYL CITRATE 100 MCG/2 ML VL ONE (15:24)
[2023-07-30] MEDS: NITROGLYCERIN 50MG/250ML 250 ML IV ONE (15:26)
[2023-07-30] MEDS: ATROPINE SULF 1 MG/10ml SYR ONE (15:51)
[2023-07-30] MEDS: METOPROLOL TARTRATE 1MG/1ML-5ML VIAL IV ONE (16:17)
[2023-07-30] MEDS: CLOPIDOGREL BISULFATE 75 MG TAB ONE (17:00)
[2023-07-30] MEDS: ASPirin 81 mg TAB ONE (17:00)
[2023-07-30] MEDS: ONDANSETRON HCL 4 MG/2 ML VIAL ONE (17:00)
[2023-07-30] MEDS: POTASSIUM EFFERVESENT TAB 25 MEQ PO ONE (19:04)
[2023-07-31] VITALS (14 sets, daily range): BP systolic 99–119; BP diastolic 54–66; PULSE 77–125; RESP 17–20; TEMP 97.8–98.4; O2SAT 94–100
[2023-07-31] MEDS: CLOPIDOGREL BISULFATE 75 MG TAB PO SCH (09:32)
[2023-07-31] MEDS: PANTOPRAZOLE 40 MG TAB PO SCH (09:59)
[2023-07-31 10:52] LABS: Basophils # (auto) 0 10 ^3/uL (0-0.2); Basophils % (auto) 0.2 % (0.0-2.0); Eosinophils # (auto) 0.1 10 ^3/uL (0-0.8); Eosinophils % (auto) 1.2 % (0.0-7.0); Hematocrit 28.6 % (36.0-46.0); Monocytes # (auto) 1.3 10 ^3/uL (0-1.3)
[2023-07-31 10:55] LABS: Hemoglobin 9.7 g/dL (12.2-16.2); Lymphocytes # (auto) 0.5 10 ^3/uL (0.4-5.4); Lymphocytes % (auto) 4.5 % (10.0-50.0); Mean Corpuscular Hgb Conc. 33.8 g/dL (32.0-36.0); Mean Corpuscular Volume 106.3 fL (80.0-100.0); Monocytes % (auto) 12.1 % (0.0-12.0); Neutrophils # (auto) 9.1 10 ^3/uL (1.6-8.6); Red Blood Cells 2.69 10^6/uL (4.0-5.20); Red Cell Distribution Width 18.3 % (11.8-14.3); White Blood Cell 11.1 10^3/uL (4.4-10.8)
[2023-07-31 11:03] LABS: Chloride 101 mmol/L (98-107); Potassium 3.3 mmol/L (3.5-5.1); Sodium 137 mmol/L (136-145)
[2023-07-31 11:04] LABS: Anion Gap 7 (5-15); Carbon Dioxide 29 mmol/L (20-30)
[2023-07-31 11:09] LABS: Blood Urea Nitrogen 20 mg/dL (9-23); Glucose 153 mg/dL (74-106)
[2023-07-31] MEDS: MORPHINE SULFATE INJ 2 MG/ml SYRG IV PRN (23:20)
[2023-08-01] VITALS (13 sets, daily range): BP systolic 93–120; BP diastolic 53–70; PULSE 84–119; RESP 16–20; TEMP 97.6–98.6; O2SAT 94–100
[2023-08-01 06:15] LABS: Basophils # (auto) 0 10 ^3/uL (0-0.2); Basophils % (auto) 0.2 % (0.0-2.0); Eosinophils # (auto) 0.2 10 ^3/uL (0-0.8); Eosinophils % (auto) 1.6 % (0.0-7.0); Hematocrit 32.7 % (36.0-46.0); Hemoglobin 10.7 g/dL (12.2-16.2); Lymphocytes # (auto) 0.6 10 ^3/uL (0.4-5.4); Lymphocytes % (auto) 5.2 % (10.0-50.0); Mean Corpuscular Hemoglobin 33.1 pg (28.0-32.0); Mean Corpuscular Hgb Conc. 32.8 g/dL (32.0-36.0); Mean Corpuscular Volume 100.7 fL (80.0-100.0); Monocytes # (auto) 1.5 10 ^3/uL (0-1.3); Monocytes % (auto) 13.4 % (0.0-12.0); Neutrophils # (auto) 8.8 10 ^3/uL (1.6-8.6); Neutrophils % (auto) 79.6 % (37.0-80.0); Red Blood Cells 3.25 10^6/uL (4.0-5.20); Red Cell Distribution Width 17.7 % (11.8-14.3); White Blood Cell 11.1 10^3/uL (4.4-10.8)
[2023-08-01 06:24] LABS: Chloride 100 mmol/L (98-107); Potassium 3.3 mmol/L (3.5-5.1); Sodium 139 mmol/L (136-145)
[2023-08-01 06:25] LABS: Anion Gap 9 (5-15); Calcium 9.6 mg/dL (8.5-10.1); Carbon Dioxide 30 mmol/L (20-30)
[2023-08-01 06:30] LABS: BUN/Creatinine Ratio 23.2 (10.0-20.0); Blood Urea Nitrogen 19 mg/dL (9-23); Glucose 119 mg/dL (74-106)
[2023-08-02] VITALS (11 sets, daily range): BP systolic 100–115; BP diastolic 47–57; PULSE 48–108; RESP 16–20; TEMP 36.6; O2SAT 93–100
[2023-08-02] MEDS: HYDROcodone-ACET 10/325MG TAB PO PRN (09:25)
[2023-08-02] MEDS ORDERED: EMPA1TAB PO ×2 (11:43)
[2023-08-02] MEDS ORDERED: CLOP75TA70 PO ×2 (11:43)
[2023-08-02] MEDS ORDERED: ASPI-325 PO ×2 (11:43)
[2023-08-02] MEDS ORDERED: FURO1TAB33 PO ×2 (11:43)
[2023-08-02] MEDS ORDERED: SACU1TAB PO ×2 (11:43)
[2023-08-02] MEDS ORDERED: SPIR25TA PO ×2 (11:43)
[2023-08-02] MEDS ORDERED: MET25T PO ×2 (11:43)
[2023-08-02] MEDS: POTASSIUM EFFERVESENT TAB 25 MEQ PO ONE (11:45)
== END 2023-08-02 16:07 | disposition home health service (06) | DRG 853 ==
LOC: ER 09:30 → EDBD 09:30 → TELE 11:14 → ICU WEST 07-19 18:32 → DOU IN ICU 07-27 20:05 → TELE-CENTR 07-29 17:54
PROVIDERS: ADMIT Nurse Practitioner Family; ATTEND Nurse Practitioner Acute Care
PROC: 05HD33Z Insertion of Infusion Device into Right Cephalic Vein, Percutaneous Approach (ICD-10-PCS; 2023-07-18)
PROC: B54MZZA Ultrasonography of Right Upper Extremity Veins, Guidance (ICD-10-PCS; 2023-07-18)
PROC: 5A09357 Assistance with Respiratory Ventilation, Less than 24 Consecutive Hours, Continuous Positive Airway Pressure (ICD-10-PCS; 2023-07-18)
PROC: 5A09357 Assistance with Respiratory Ventilation, Less than 24 Consecutive Hours, Continuous Positive Airway Pressure (ICD-10-PCS; 2023-07-19)
PROC: 5A1955Z Respiratory Ventilation, Greater than 96 Consecutive Hours (ICD-10-PCS; principal; 2023-07-20)
PROC: 0BH17EZ Insertion of Endotracheal Airway into Trachea, Via Natural or Artificial Opening (ICD-10-PCS; 2023-07-20)
PROC: 4A133B1 Monitoring of Arterial Pressure, Peripheral, Percutaneous Approach (ICD-10-PCS; 2023-07-20)
PROC: 02HV33Z Insertion of Infusion Device into Superior Vena Cava, Percutaneous Approach (ICD-10-PCS; 2023-07-20)
PROC: B548ZZA Ultrasonography of Superior Vena Cava, Guidance (ICD-10-PCS; 2023-07-20)
PROC: 0BJ08ZZ Inspection of Tracheobronchial Tree, Via Natural or Artificial Opening Endoscopic (ICD-10-PCS; 2023-07-21)
PROC: 027137Z Dilation of Coronary Artery, Two Arteries with Four or More Drug-eluting Intraluminal Devices, Percutaneous Approach (ICD-10-PCS; 2023-07-30)
PROC: B215YZZ Fluoroscopy of Left Heart using Other Contrast (ICD-10-PCS; 2023-07-30)
PROC: 4A023N7 Measurement of Cardiac Sampling and Pressure, Left Heart, Percutaneous Approach (ICD-10-PCS; 2023-07-30)
PROC: B211YZZ Fluoroscopy of Multiple Coronary Arteries using Other Contrast (ICD-10-PCS; 2023-07-30)
DX: A41.9 Sepsis, unspecified organism (principal); I21.4 Non-ST elevation (NSTEMI) myocardial infarction; I50.21 Acute systolic (congestive) heart failure; J96.01 Acute respiratory failure with hypoxia; J18.9 Pneumonia, unspecified organism; R65.21 Severe sepsis with septic shock; J44.1 Chronic obstructive pulmonary disease with (acute) exacerbation; J44.0 Chronic obstructive pulmonary disease with (acute) lower respiratory infection; I42.9 Cardiomyopathy, unspecified; I11.0 Hypertensive heart disease with heart failure; I25.10 Atherosclerotic heart disease of native coronary artery without angina pectoris; C50.912 Malignant neoplasm of unspecified site of left female breast; Z20.822 Contact with and (suspected) exposure to COVID-19; Z85.3 Personal history of malignant neoplasm of breast; Z87.01 Personal history of pneumonia (recurrent); Z87.891 Personal history of nicotine dependence; Z79.899 Other long term (current) drug therapy
CPT/HCPCS: 31622; 36415; 36600; 71045; 71275; 80048; 80053; 80061; 80202; 81001; 82040; 82310; 82565; 82805; 82962; 83036; 83605; 83735; 83880; 84132; 84443; 84484; 85007; 85025; 85027; 85379; 85610; 85652; 85730; 87040; 87070; 87081; 87205; 87426; 87804; 92610; 92941; 93005; 93306; 93458; 93970; 94002; 94003; 94640; 94660; 96365; 96375; 97110; 97116; 97163; 97530; 99152; 99153; C1874; C9113; G0378; J0171; J1100; J1815; J2001; J2185; J2248; J2250; J2405; J2704; J3480; J3490; J7060; Q9967

== ENCOUNTER 2023-08-03 18:37 | Inpatient (IN) | payer OTHER, MEDICAID ==
[~2023-08-03] VITALS: Ht 165.1 cm; Wt 45.5 kg
[~2023-08-03 18:37] MED LIST changes: +ALBU108A5 INH; +ASPI-325 PO; +BUDE1AER6 INH; +CLOP75TA70 PO; +EMPA1TAB PO; +FURO1TAB33 PO; +MET25T PO; +MORP1TAB12 PO; +OMEP20TA PO; +PARO-135 PO; +POTA-220 PO; +SACU1TAB PO; +SPIR25TA PO
[2023-08-03 19:46] LABS: Basophils # (auto) 0.1 10 ^3/uL (0-0.2); Eosinophils # (auto) 0.4 10 ^3/uL (0-0.8); Lymphocytes # (auto) 0.3 10 ^3/uL (0.4-5.4); White Blood Cell 8.5 10^3/uL (4.4-10.8)
[2023-08-03 19:47] LABS: Basophils % (auto) 0.9 % (0.0-2.0); Eosinophils % (auto) 4.6 % (0.0-7.0); Hematocrit 26.9 % (36.0-46.0); Hemoglobin 9.1 g/dL (12.2-16.2); Lymphocytes % (auto) 3.8 % (10.0-50.0); Mean Corpuscular Hemoglobin 36.4 pg (28.0-32.0); Mean Corpuscular Hgb Conc. 34.1 g/dL (32.0-36.0); Mean Corpuscular Volume 106.9 fL (80.0-100.0); Monocytes % (auto) 11.5 % (0.0-12.0); Neutrophils # (auto) 6.7 10 ^3/uL (1.6-8.6); Neutrophils % (auto) 79.2 % (37.0-80.0); Red Blood Cells 2.51 10^6/uL (4.0-5.20); Red Cell Distribution Width 18.4 % (11.8-14.3)
[2023-08-03 20:00] LABS: Alanine Aminotransferase 24 U/L (7-40); Albumin 3.4 g/dL (3.2-4.8); Alkaline Phosphatase 78 U/L (46-116); Anion Gap 5 (5-15); Aspartate Aminotransferase 18 U/L (13-40); Blood Urea Nitrogen 21 mg/dL (9-23); Carbon Dioxide 31 mmol/L (20-30); Chloride 102 mmol/L (98-107); Glucose 114 mg/dL (74-106); Potassium 3.7 mmol/L (3.5-5.1); Sodium 138 mmol/L (136-145)
[2023-08-03 20:01] LABS: Bilirubin, Total 0.5 mg/dL (0.2-1.0); Total Protein 5.2 g/dL (5.7-8.2)
[2023-08-03] MEDS: SODIUM CHLORIDE 0.9% 500 ML IVB ONE (22:23)
[2023-08-03 22:30] VITALS: PULSE 80; RESP 15; O2SAT 97
[2023-08-04 04:50] LABS: Urine Blood Negative /uL (Negative); Urine Budding Yeast OCCASIONAL /hpf (None Seen); Urine Clarity Clear (Clear); Urine Color Light-Yellow (Yellow); Urine Protein, UAD Negative (Negative); Urine Specific Gravity 1.009 (1.001-1.035); Urine Urobilinogen Normal (Negative); Urine WBC 2 /hpf (0 - 5)
[2023-08-04] MEDS ORDERED: NITROGLYCERIN 0.4 MG SL TAB SL PRN (05:00)
[2023-08-04] MEDS ORDERED: MORPHINE SULFATE INJ 2 MG/ml SYRG IV PRN (05:00)
[2023-08-04] MEDS ORDERED: ONDANSETRON HCL 4 MG/2 ML VIAL IV PRN (05:00)
[2023-08-04 05:59] LABS: Hemoglobin 8.3 g/dL (12.2-16.2)
[2023-08-04 06:03] LABS: Hematocrit 24.3 % (36.0-46.0)
[2023-08-04 06:10] LABS: Chloride 107 mmol/L (98-107); Potassium 3.7 mmol/L (3.5-5.1); Sodium 141 mmol/L (136-145)
[2023-08-04 06:11] LABS: Anion Gap 7 (5-15); Calcium 8.3 mg/dL (8.5-10.1); Carbon Dioxide 27 mmol/L (20-30)
[2023-08-04 06:16] LABS: BUN/Creatinine Ratio 26.4 (10.0-20.0); Blood Urea Nitrogen 19 mg/dL (9-23)
[2023-08-04 06:20] LABS: Glucose 97 mg/dL (74-106)
[2023-08-04] MEDS: ENOXAPARIN SOD 40 MG/0.4 ML SYRINGE SC SCH (10:08)
[2023-08-04] MEDS: CLOPIDOGREL BISULFATE 75 MG TAB PO SCH (10:09)
[2023-08-04] MEDS: FUROSEMIDE 20 MG TAB PO SCH (10:10)
[2023-08-04 15:46] VITALS: PULSE 94; RESP 18; O2SAT 98
[2023-08-04 17:00] VITALS: BP 115/55; PULSE 87; RESP 18; TEMP 98.5; O2SAT 97
[2023-08-04 20:00] VITALS: PULSE 88; RESP 18; O2SAT 99
[2023-08-04] MEDS: ATORVASTATIN 20 MG TAB PO SCH (21:35)
[2023-08-04] MEDS: ACETAMINOPHEN 325 MG TAB PO PRN (21:35)
[2023-08-04 22:00] VITALS: BP 121/52; PULSE 96; RESP 18; TEMP 98.4; O2SAT 99
[2023-08-05 01:00] VITALS: BP 133/62; PULSE 93; RESP 19; TEMP 98.2; O2SAT 90
[2023-08-05] MEDS: CLOTRIMAZOLE 1 % CREAM 15GM TOP SCH (01:47)
[2023-08-05 05:00] VITALS: BP 130/63; PULSE 85; RESP 18; TEMP 98.1; O2SAT 93
[2023-08-05 05:59] LABS: Chloride 106 mmol/L (98-107); Potassium 2.9 mmol/L (3.5-5.1); Sodium 140 mmol/L (136-145)
[2023-08-05 06:00] LABS: Anion Gap 8 (5-15); Calcium 8.6 mg/dL (8.5-10.1); Carbon Dioxide 26 mmol/L (20-30)
[2023-08-05 06:05] LABS: BUN/Creatinine Ratio 22.2 (10.0-20.0); Blood Urea Nitrogen 10 mg/dL (9-23); Glucose 94 mg/dL (74-106)
[2023-08-05 06:32] LABS: Basophils # (auto) 0.1 10 ^3/uL (0-0.2); Eosinophils # (auto) 0.3 10 ^3/uL (0-0.8); Hemoglobin 8.4 g/dL (12.2-16.2); Lymphocytes # (auto) 0.3 10 ^3/uL (0.4-5.4); Monocytes # (auto) 0.8 10 ^3/uL (0-1.3); Monocytes % (auto) 12.3 % (0.0-12.0); Red Blood Cells 2.27 10^6/uL (4.0-5.20); White Blood Cell 6.8 10^3/uL (4.4-10.8)
[2023-08-05 06:39] LABS: Basophils % (auto) 0.9 % (0.0-2.0); Lymphocytes % (auto) 3.7 % (10.0-50.0); Mean Corpuscular Hemoglobin 36.9 pg (28.0-32.0); Mean Corpuscular Hgb Conc. 34.9 g/dL (32.0-36.0); Mean Corpuscular Volume 105.9 fL (80.0-100.0); Neutrophils # (auto) 5.4 10 ^3/uL (1.6-8.6); Neutrophils % (auto) 79.1 % (37.0-80.0); Nucleated Red Blood Cells % 0.1 %; Red Cell Distribution Width 17.6 % (11.8-14.3)
[2023-08-05 08:00] VITALS: PULSE 91
[2023-08-05 08:04] VITALS: PULSE 88; RESP 18; O2SAT 99
[2023-08-05 08:45] VITALS: BP 126/65; PULSE 114; RESP 22; TEMP 98.1; O2SAT 98
[2023-08-05] MEDS ORDERED: HYDROcodone-ACET 7.5/325MG TAB PO PRN (11:30)
[2023-08-05] MEDS: PANTOPRAZOLE 40 MG TAB PO SCH (11:46)
[2023-08-05] MEDS: ASPirin-EC 81 mg tab PO SCH (11:46)
[2023-08-05] MEDS: MAGNESIUM OXIDE 400 MG TAB PO SCH (12:11)
[2023-08-05] MEDS: ALPRAZolam 0.5 MG TAB PO PRN (12:12)
[2023-08-05] MEDS: POTASSIUM EFFERVESENT TAB 25 MEQ PO ONE (12:12)
[2023-08-05 12:44] VITALS: BP 110/71; PULSE 115; RESP 19; TEMP 99.2; O2SAT 94
[2023-08-05] MEDS ORDERED: EMPA1TAB PO (13:57)
[2023-08-05] MEDS ORDERED: ALBU108A5 INH (14:05)
[2023-08-05] MEDS ORDERED: BENA40TA71 PO (14:05)
[2023-08-05] MEDS ORDERED: METOPROLOL TARTRATE 25 MG TAB PO SCH (22:00)
== END 2023-08-05 16:20 | disposition left against medical advice (07) | DRG 91 ==
LOC: ER 18:37 → EDBD 18:37 → TELE 08-04 05:04 → TELE-CENTR 08-04 16:04
PROVIDERS: ADMIT Nurse Practitioner; ATTEND Internal Medicine Pulmonary Disease
DX: G92.8 Other toxic encephalopathy (principal); I50.23 Acute on chronic systolic (congestive) heart failure; R57.1 Hypovolemic shock; N17.9 Acute kidney failure, unspecified; R64 Cachexia; F11.23 Opioid dependence with withdrawal; Z68.1 Body mass index [BMI] 19.9 or less, adult; I95.2 Hypotension due to drugs; I11.0 Hypertensive heart disease with heart failure; C50.919 Malignant neoplasm of unspecified site of unspecified female breast; Z53.29 Procedure and treatment not carried out because of patient's decision for other reasons; D64.9 Anemia, unspecified; G89.4 Chronic pain syndrome; I25.10 Atherosclerotic heart disease of native coronary artery without angina pectoris; J44.9 Chronic obstructive pulmonary disease, unspecified; Z87.891 Personal history of nicotine dependence; Z87.01 Personal history of pneumonia (recurrent); Z95.5 Presence of coronary angioplasty implant and graft; T50.2X5A Adverse effect of carbonic-anhydrase inhibitors, benzothiadiazides and other diuretics, initial encounter
CPT/HCPCS: 36415; 70450; 71045; 80048; 80053; 81001; 83605; 84484; 85014; 85018; 85025; 86850; 86900; 86901; 87040; 93005; 99291; G0378